=== PATIENT | female | born 1970 | race Caucasian/White ===

== ENCOUNTER 2018-07-22 10:17 | Emergency (ER) | payer OTHER ==
[~2018-07-22] VITALS: Ht 167.6 cm; Wt 81.6 kg
[2018-07-22] MEDS ORDERED: CELEXA10 MG (10:26)
[2018-07-22] MEDS ORDERED: KETO10TA2 PO (12:00)
[2018-07-22] MEDS ORDERED: NORFLEX100MG PO (12:00)
== END 2018-07-22 12:44 | disposition home or self-care (01) ==
LOC: ER 10:17
DX: M54.5 Low back pain (principal)